=== PATIENT | male | born 1970 | race Caucasian/White ===

== ENCOUNTER → 2018-09-21 | Day surgery (SDC) | payer OTHER | LOC: MSO 07:12 | DX: Z12.11 Encounter for screening for malignant neoplasm of colon (principal); Z80.0 Family history of malignant neoplasm of digestive organs; D12.5 Benign neoplasm of sigmoid colon; D12.3 Benign neoplasm of transverse colon; I10 Essential (primary) hypertension; F17.220 Nicotine dependence, chewing tobacco, uncomplicated; Z79.82 Long term (current) use of aspirin; Z79.899 Other long term (current) drug therapy; Z98.52 Vasectomy status; R06.83 Snoring | CPT/HCPCS: 00811; J2704; J7120 ==

== ENCOUNTER → 2020-04-24 | Outpatient (CLI) | payer OTHER | LOC: RAD 08:34 | DX: M47.814 Spondylosis without myelopathy or radiculopathy, thoracic region (principal); M47.816 Spondylosis without myelopathy or radiculopathy, lumbar region ==

== ENCOUNTER 2020-05-02 13:46 | Outpatient (RCR) | payer OTHER | END 2020-07-31 | disposition still patient (30) | LOC: PT | DX: M54.5 Low back pain (principal) | CPT/HCPCS: G0283-GP ==

== ENCOUNTER → 2020-05-23 | Outpatient (CLI) | payer OTHER | LOC: RAD 08:58 | DX: M51.37 Other intervertebral disc degeneration, lumbosacral region (principal); M51.9 Unspecified thoracic, thoracolumbar and lumbosacral intervertebral disc disorder ==

== ENCOUNTER → 2022-03-19 | Outpatient (CLI) | payer BC ==
[2022-03-19 07:15] LABS: ALBUMIN 4.3 g/dL (3.5-5.0); POTASSIUM 3.5 mmol/L (3.5-5.1)
[2022-03-19 07:16] LABS: CALCIUM 9.6 mg/dL (8.3-10.5)
[2022-03-19 07:20] LABS: TOTAL BILIRUBIN 0.5 mg/dL (0.2-1.2)
== END ==
LOC: LAB 06:57
PROVIDERS: Family Medicine
DX: Z00.00 Encounter for general adult medical examination without abnormal findings (principal); Z12.5 Encounter for screening for malignant neoplasm of prostate; E78.2 Mixed hyperlipidemia; I10 Essential (primary) hypertension; E78.1 Pure hyperglyceridemia

== ENCOUNTER → 2023-05-05 | Outpatient (CLI) | payer BC | LOC: LAB 08:25 | PROVIDERS: Family Medicine | DX: Z12.5 Encounter for screening for malignant neoplasm of prostate (principal); I10 Essential (primary) hypertension; E78.1 Pure hyperglyceridemia ==

== ENCOUNTER → 2023-08-18 | Day surgery (SDC) | payer BC ==
[~2023-08-18] MED LIST: Lidocaine PF 2% (20 MG/ML) 5 ML VIAL ONE
== END | disposition home or self-care (01) ==
LOC: MSO 09:42
DX: Z12.11 Encounter for screening for malignant neoplasm of colon (principal); D12.4 Benign neoplasm of descending colon; D12.3 Benign neoplasm of transverse colon; Z80.0 Family history of malignant neoplasm of digestive organs; E66.9 Obesity, unspecified; F17.290 Nicotine dependence, other tobacco product, uncomplicated
CPT/HCPCS: 00812; J2704; J7120